=== PATIENT | male | born 1940 | race Native Hawaiian/Other Pacific Islander ===

== ENCOUNTER 2016-08-31 12:25 | Outpatient (CLI) | payer OTHER, MEDICARE ==
[~2016-08-31 12:25] MED LIST: ALLO100T22 PO; AMLO2.5T PO; BUDEPRION150 MG PO; CETIRIZINE10 MG PO; METRONIDAZOL500 MG PO; NEURONTIN800 MG PO; OMEP40CA PO; PRAS5TAB PO
== END 2016-08-31 20:47 | disposition home or self-care (01) ==
LOC: LABW 12:25
DX: K59.1 Functional diarrhea (principal)
CPT/HCPCS: 82705; 87045; 87205; 87328; 87329; 87798; 87899

== ENCOUNTER 2016-12-05 11:04 | Outpatient (CLI) | payer OTHER, MEDICARE ==
[2016-12-05 13:25] LABS: PLATELET COUNT 207 K/uL (142-355)
== END 2016-12-05 19:04 | disposition home or self-care (01) ==
LOC: LABW 11:04 → INF 13:00 → LABW 19:04
PROVIDERS: Internal Medicine
DX: D63.1 Anemia in chronic kidney disease (principal)
CPT/HCPCS: 36415; 85027

== ENCOUNTER 2016-12-25 13:53 | Outpatient (CLI) | payer OTHER, MEDICARE ==
[2016-12-25 14:06] LABS: PLATELET COUNT 204 K/uL (142-355)
[2016-12-25 14:24] LABS: POTASSIUM 5.2 mmol/L (3.6-5.2)
== END 2016-12-25 14:55 | disposition home or self-care (01) ==
LOC: LABW 13:53
PROVIDERS: Nurse Practitioner Family
DX: R53.83 Other fatigue (principal)
CPT/HCPCS: 36415; 80053; 85027

== ENCOUNTER 2017-01-07 10:44 | Emergency (ER) | payer OTHER, MEDICARE ==
[2017-01-06 10:50] VITALS: TEMP 98.1
[~2017-01-07] VITALS: Ht 182.9 cm; Wt 96.2 kg
[2017-01-07 11:19] VITALS: BP 172/81
== END 2017-01-07 11:20 | disposition home or self-care (01) ==
LOC: ED 10:44
PROC: 0HDDXZZ Extraction of Right Lower Arm Skin, External Approach (ICD-10-PCS; principal; 2017-01-07)
DX: S51.811A Laceration without foreign body of right forearm, initial encounter (principal); X58.XXXA Exposure to other specified factors, initial encounter; Y92.098 Other place in other non-institutional residence as the place of occurrence of the external cause
CPT/HCPCS: 99282

== ENCOUNTER 2017-06-10 16:07 | Outpatient (CLI) | payer OTHER, MEDICARE | END 2017-06-10 20:44 | disposition home or self-care (01) | LOC: US 16:07 | DX: N50.82 Scrotal pain (principal); K40.90 Unilateral inguinal hernia, without obstruction or gangrene, not specified as recurrent; R10.84 Generalized abdominal pain ==

== ENCOUNTER 2017-09-30 22:54 | Emergency (ER) | payer OTHER, MEDICARE ==
[~2017-09-30] VITALS: Ht 180.3 cm; Wt 100.7 kg
[2017-09-30 23:54] LABS: PLATELET COUNT 152 K/uL (142-355)
[2017-10-01 02:25] VITALS: BP 147/68; TEMP 98.5
== END 2017-10-01 02:26 | disposition home or self-care (01) ==
LOC: ED 22:54
DX: S00.83XA Contusion of other part of head, initial encounter (principal); S50.01XA Contusion of right elbow, initial encounter; S00.11XA Contusion of right eyelid and periocular area, initial encounter; S00.03XA Contusion of scalp, initial encounter; W18.09XA Striking against other object with subsequent fall, initial encounter; Y92.89 Other specified places as the place of occurrence of the external cause
CPT/HCPCS: 36415; 80053; 85027; 99283

== ENCOUNTER 2018-09-04 14:27 | Outpatient (CLI) | payer OTHER, MEDICARE | END 2018-09-04 19:23 | disposition home or self-care (01) | LOC: RAD 14:27 | DX: M25.521 Pain in right elbow (principal); M25.511 Pain in right shoulder ==

== ENCOUNTER 2019-03-10 10:48 | Outpatient (CLI) | payer OTHER, MEDICARE | END 2019-03-10 20:12 | disposition home or self-care (01) | LOC: LABW 10:48 | DX: E03.8 Other specified hypothyroidism (principal); E53.8 Deficiency of other specified B group vitamins | CPT/HCPCS: 36415; 82607; 84439; 84443; 85651 ==

== ENCOUNTER 2019-06-16 12:32 | Outpatient (CLI) | payer OTHER, MEDICARE | END 2019-06-16 19:45 | disposition home or self-care (01) | LOC: LABW 12:32 | DX: E03.8 Other specified hypothyroidism (principal); E53.8 Deficiency of other specified B group vitamins | CPT/HCPCS: 36415; 82607; 82746; 84439; 84443; 85651 ==

== ENCOUNTER 2019-08-11 13:19 | Outpatient (CLI) | payer OTHER, MEDICARE ==
[2019-08-11 14:11] LABS: PLATELET COUNT 196 K/uL (142-355)
[2019-08-11 14:34] LABS: POTASSIUM 5.3 mmol/L (3.6-5.2)
== END 2019-08-11 19:18 | disposition home or self-care (01) ==
LOC: LABW 13:19
PROVIDERS: Internal Medicine
DX: E03.8 Other specified hypothyroidism (principal); R50.9 Fever, unspecified
CPT/HCPCS: 36415; 80053; 81000; 84439; 84443; 85027

== ENCOUNTER 2019-09-11 11:53 | Outpatient (CLI) | payer OTHER, MEDICARE ==
[2019-09-11 13:15] LABS: PLATELET COUNT 201 K/uL (142-355)
[2019-09-11 13:31] LABS: POTASSIUM 4.9 mmol/L (3.6-5.2)
== END 2019-09-11 20:30 | disposition home or self-care (01) ==
LOC: LABW 11:53
PROVIDERS: Internal Medicine
DX: E03.8 Other specified hypothyroidism (principal); I12.9 Hypertensive chronic kidney disease with stage 1 through stage 4 chronic kidney disease, or unspecified chronic kidney disease
CPT/HCPCS: 36415; 80053; 84439; 84443; 85027

== ENCOUNTER 2019-10-05 09:20 | Outpatient (CLI) | payer OTHER, MEDICARE ==
[2019-10-05 09:52] LABS: PLATELET COUNT 168 K/uL (142-355)
[2019-10-05 10:21] LABS: POTASSIUM 4.7 mmol/L (3.6-5.2)
== END 2019-10-05 19:25 | disposition home or self-care (01) ==
LOC: LABW 09:20
PROVIDERS: Internal Medicine
DX: E03.8 Other specified hypothyroidism (principal); I12.9 Hypertensive chronic kidney disease with stage 1 through stage 4 chronic kidney disease, or unspecified chronic kidney disease
CPT/HCPCS: 36415; 80053; 84439; 84443; 85027

== ENCOUNTER 2019-10-30 12:08 | Outpatient (CLI) | payer OTHER, MEDICARE ==
[2019-10-30 12:34] LABS: PLATELET COUNT 175 K/uL (142-355)
[2019-10-30 12:51] LABS: POTASSIUM 4.9 mmol/L (3.6-5.2)
== END 2019-10-30 19:23 | disposition home or self-care (01) ==
LOC: LABW 12:08
PROVIDERS: Internal Medicine
DX: E03.9 Hypothyroidism, unspecified (principal); I12.9 Hypertensive chronic kidney disease with stage 1 through stage 4 chronic kidney disease, or unspecified chronic kidney disease
CPT/HCPCS: 36415; 80053; 84439; 84443; 85027

== ENCOUNTER 2019-11-06 17:03 | Emergency (ER) | payer OTHER, MEDICARE ==
[~2019-11-06] VITALS: Ht 182.9 cm; Wt 95.3 kg
[2019-11-06 17:29] LABS: PLATELET COUNT 167 K/uL (142-355)
[2019-11-06 17:37] LABS: POTASSIUM 4.6 mmol/L (3.6-5.2); SODIUM 143 mmol/L (136-145)
[2019-11-06 20:30] VITALS: TEMP 98.9
[2019-11-06 22:50] VITALS: BP 145/66
== END 2019-11-06 22:50 | disposition short-term general hospital (02) ==
LOC: ED 17:03
PROVIDERS: Family Medicine
DX: R93.89 Abnormal findings on diagnostic imaging of other specified body structures (principal); R55 Syncope and collapse; V57.0XXA Driver of pick-up truck or van injured in collision with fixed or stationary object in nontraffic accident, initial encounter; Y92.481 Parking lot as the place of occurrence of the external cause
CPT/HCPCS: 80053; 82550; 84484; 85027; 93005; 99284

== ENCOUNTER 2019-12-01 12:44 | Outpatient (CLI) | payer OTHER, MEDICARE | END 2019-12-01 20:36 | disposition home or self-care (01) | LOC: RESP 12:44 | DX: I10 Essential (primary) hypertension (principal) ==

== ENCOUNTER 2020-02-03 10:11 | Outpatient (CLI) | payer OTHER, MEDICARE ==
[2020-02-03 10:32] LABS: PLATELET COUNT 183 K/uL (142-355)
[2020-02-03 11:22] LABS: POTASSIUM 4.8 mmol/L (3.6-5.2)
== END 2020-02-03 23:59 | disposition home or self-care (01) ==
LOC: LABW 10:11
PROVIDERS: Internal Medicine
DX: E03.8 Other specified hypothyroidism (principal); I12.9 Hypertensive chronic kidney disease with stage 1 through stage 4 chronic kidney disease, or unspecified chronic kidney disease; R53.82 Chronic fatigue, unspecified; E53.8 Deficiency of other specified B group vitamins
CPT/HCPCS: 36415; 80053; 82607; 82746; 84439; 84443; 85027; 85651; 86038

== ENCOUNTER 2020-03-15 10:41 | Outpatient (CLI) | payer OTHER, MEDICARE ==
[2020-03-15 11:33] LABS: PLATELET COUNT 214 K/uL (142-355)
== END 2020-03-15 19:10 | disposition home or self-care (01) ==
LOC: CT 10:41
PROVIDERS: Internal Medicine
DX: R06.09 Other forms of dyspnea (principal); E03.8 Other specified hypothyroidism; I12.9 Hypertensive chronic kidney disease with stage 1 through stage 4 chronic kidney disease, or unspecified chronic kidney disease; R53.82 Chronic fatigue, unspecified
CPT/HCPCS: 36415; 80053; 82607; 82746; 84439; 84443; 85027; 85651; 86038

== ENCOUNTER 2020-04-14 11:18 | Outpatient (CLI) | payer OTHER, MEDICARE ==
[2020-04-14 12:30] LABS: PLATELET COUNT 175 K/uL (142-355)
[2020-04-14 12:44] LABS: POTASSIUM 4.6 mmol/L (3.6-5.2)
== END 2020-04-14 21:02 | disposition home or self-care (01) ==
LOC: RAD 11:18
PROVIDERS: ATTEND Podiatrist
DX: Z01.810 Encounter for preprocedural cardiovascular examination (principal); Z01.811 Encounter for preprocedural respiratory examination; Z01.812 Encounter for preprocedural laboratory examination
CPT/HCPCS: 36415; 80053; 85027; 93005

== ENCOUNTER 2020-08-04 13:52 | Emergency (ER) | payer OTHER, MEDICARE ==
[~2020-08-04] VITALS: Ht 182.9 cm; Wt 95.3 kg
[2020-08-04 14:09] VITALS: TEMP 97.2
[2020-08-04 16:52] VITALS: BP 156/74
== END 2020-08-04 16:52 | disposition home or self-care (01) ==
LOC: ED 13:52
DX: S60.512A Abrasion of left hand, initial encounter (principal); S50.312A Abrasion of left elbow, initial encounter; S20.222A Contusion of left back wall of thorax, initial encounter; S10.83XA Contusion of other specified part of neck, initial encounter; Z91.81 History of falling; R51.9 Headache, unspecified; W01.198A Fall on same level from slipping, tripping and stumbling with subsequent striking against other object, initial encounter; Y92.89 Other specified places as the place of occurrence of the external cause
CPT/HCPCS: 99283

== ENCOUNTER 2020-08-23 12:54 | Outpatient (CLI) | payer OTHER, MEDICARE ==
[2020-08-23 13:32] LABS: PLATELET COUNT 239 K/uL (142-355)
[2020-08-23 13:52] LABS: POTASSIUM 4.7 mmol/L (3.6-5.2)
== END 2020-08-23 21:55 | disposition home or self-care (01) ==
LOC: LABW 12:54
PROVIDERS: ATTEND Internal Medicine
DX: E03.8 Other specified hypothyroidism (principal); I12.9 Hypertensive chronic kidney disease with stage 1 through stage 4 chronic kidney disease, or unspecified chronic kidney disease; R53.82 Chronic fatigue, unspecified
CPT/HCPCS: 36415; 80053; 82607; 82746; 84439; 84443; 85027; 85652

== ENCOUNTER 2020-09-21 12:58 | Outpatient (CLI) | payer OTHER, MEDICARE ==
[2020-09-21 13:09] LABS: PLATELET COUNT 211 K/uL (142-355)
== END 2020-09-21 21:30 | disposition home or self-care (01) ==
LOC: LABW 12:58
PROVIDERS: ATTEND Internal Medicine Cardiovascular Disease
DX: Z79.899 Other long term (current) drug therapy (principal)
CPT/HCPCS: 36415; 85027

== ENCOUNTER 2020-10-14 08:13 | Outpatient (CLI) | payer OTHER, MEDICARE | END 2020-10-14 22:38 | disposition home or self-care (01) | LOC: RAD 08:13 → RESP 08:13 | PROVIDERS: ATTEND Internal Medicine Cardiovascular Disease | DX: I10 Essential (primary) hypertension (principal); R06.02 Shortness of breath; R60.1 Generalized edema ==

== ENCOUNTER 2021-01-24 12:38 | Outpatient (CLI) | payer OTHER, MEDICARE ==
[2021-01-24 13:21] LABS: PLATELET COUNT 237 K/uL (142-355)
[2021-01-24 13:40] LABS: POTASSIUM 3.8 mmol/L (3.6-5.2)
== END 2021-01-24 22:15 | disposition home or self-care (01) ==
LOC: LABW 12:38
PROVIDERS: ATTEND Internal Medicine
DX: E03.9 Hypothyroidism, unspecified (principal); I12.9 Hypertensive chronic kidney disease with stage 1 through stage 4 chronic kidney disease, or unspecified chronic kidney disease; R10.9 Unspecified abdominal pain
CPT/HCPCS: 36415; 80053; 82150; 83690; 83735; 84100; 84439; 84443; 85027